=== PATIENT | male | born 1970 ===

== ENCOUNTER 2017-06-26 00:22 | Day surgery (SDC) | payer OTHER ==
[~2017-06-26] VITALS: Ht 182.9 cm; Wt 87.5 kg
[~2017-06-26 00:22] MED LIST: HYDR-385 PO
[2017-06-26 15:26] VITALS: BP 148/96
[2017-06-26 15:43] LABS: PLATELET COUNT, AUTOMATED 169 K/uL (150-450)
[2017-06-26] MEDS ORDERED: LIDOCAINE/SOD BICARB 8.4% SYR ID ONE (16:35)
[2017-06-26] MEDS ORDERED: FAMOTIDINE 20 MG TAB PO ONE (16:35)
[2017-06-26] MEDS ORDERED: NORMOSOL R SOLN(*) 1000 ML BAG 1,000 ML IV PRN (16:35)
[2017-06-26] MEDS ORDERED: MIDAZOLAM 2 MG/2 ML VIAL IVP PRN (16:35)
[2017-06-26] MEDS ORDERED: ceFAZolin(*) 2GM/D5W 50ML 50 ML IVPB ONE (16:35)
[2017-06-26] MEDS ORDERED: CELECOXIB 200 MG CAP PO ONE (16:35)
[2017-06-26] MEDS ORDERED: ROPIVACAINE 0.2% 20 ML VIAL ONE (17:45)
[2017-06-26] MEDS ORDERED: PROPOFOL EMUL(*) 10MG/ML 20 ML 40 ML ONE (17:51)
[2017-06-26] MEDS ORDERED: ONDANSETRON 4 MG/2 ML VIAL ONE (17:51)
[2017-06-26] MEDS ORDERED: DEXAMETHASONE SOD PHOS 10MG/ML ONE (17:51)
[2017-06-26] MEDS ORDERED: LIDOCAINE MPF 1% 5 ML VIAL ONE (17:51)
[2017-06-26] MEDS ORDERED: fentaNYL CITR 100 MCG/2 ML AMP ONE (18:58)
[2017-06-26] MEDS ORDERED: CEPH500T7 PO (19:38)
[2017-06-26] MEDS ORDERED: HYDR-385 PO (19:39)
--- NOTE | 2017-06-28 09:42 | OPERATIVE REPORT 1 ---
EVENT DATE: June 26, 2017 SURGEON: Regino Davidson MD ANESTHESIOLOGIST: Richard French MD ANESTHESIA: General. 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 PROCEDURE PERFORMED Debridement to and including bone with local soft tissue advancement and coverage (approximately 1 cm2). ESTIMATED BLOOD LOSS Minimal. IVF 1100. TOURNIQUET TIME None (Tourni-Cot was used). SPECIMENS No specimens. COMPLICATIONS No complications. IMPLANTS USED No implants. SUMMARY OF PROCEDURE The patient was brought into the operating room and placed on the OR table in the supine position. A hand table was at his left side. After obtaining adequate general anesthesia, the dressing was removed, and we further evaluated the wound. As per his request, we had photographed the entire process from the beginning through the final appearance. The hand was cleaned. There was a reverse obliquity loss of soft tissue from the hyponychium obliquely along the pulp space to include a portion of the distal radial aspect of the terminal phalanx. After carefully washing this out and using an adequate local wash, we then did a standard surgical prep. I used a medium Tourni-Cot, and then proceeded to do our surgery. We started by trimming a little bit of the phalanx back and trimming a part of the nail plate, keeping adequate nail matrix for adhesion. This allowed for further exposure and trimming back of the slightly proud terminal phalanx. 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 Once this was attained, I then began to work to cover the tissues. We advanced the soft tissues around the tip of the finger using non-absorbable suture in purse string fashion and also in mattress fashion as needed, rearranging the flaps to cover the tissue. We placed on suture through the nail plate and into skin to allow for some actual skin coverage, but some was intended to allow secondary healing later. The majority of this tissue was closed with absorbable suture, since this entire area would most likely be covered by scab. Once the rearrangement of soft tissues was complete, we removed the Tourni-Cot and then placed an injection for postoperative pain control, after which he was given a dry sterile dressing. He was awakened and transferred to the recovery area in stable condition. RADHA
== END 2017-06-26 20:05 | disposition home or self-care (01) ==
LOC: OR 00:22
PROVIDERS: ATTEND Orthopaedic Surgery Hand Surgery
DX: S61.102A Unspecified open wound of left thumb with damage to nail, initial encounter (principal)
CPT/HCPCS: 11044; 36415; 85025; A4565; J1100; J2001; J2405; J2704; J2795; J3010; J0690